=== PATIENT | male | born 1990 | race Caucasian/White ===

== ENCOUNTER 2018-02-03 17:21 | Inpatient (IN) | payer BC ==
[~2018-02-03] VITALS: Ht 172.7 cm; Wt 90.3 kg
[2018-02-03 18:41] LABS: HEMATOCRIT 41.2 % (38.0-50.0); HEMOGLOBIN 14.7 G/DL (12.5-16.6); MCH 28.2 PG (29.0-34.0); MCHC 35.7 G/DL (30.0-36.0); MCV 79.1 FL (86-99); PLATELET COUNT 406 K/uL (156-360); RBC DIS.WIDTH-SD 37.1 % (39-53); RED BLOOD COUNT 5.21 M/uL (4.00-5.50); WHITE BLOOD COUNT 8.3 K/uL (4.1-10.2)
[2018-02-03 18:53] LABS: CHLORIDE 108 mEq/L (99-109); POTASSIUM 4.3 mEq/L (3.7-5.4); SODIUM 139 mEq/L (136-147)
[2018-02-03 18:55] LABS: GLUCOSE 93 mg/dL (70-99)
[2018-02-03 18:59] LABS: CREATININE 1.7 mg/dL (0.6-1.3); GFR ESTIMATE (CALCULATED) 51 mL/min/ (58.99-99999); UREA NITROGEN (BUN) 14 mg/dL (9-23)
[2018-02-03 19:23] LABS: CREATINE KINASE 5050 IU/L (1-294)
[2018-02-03 19:45] LABS: APPEARANCE CLEAR ((CLEAR)); BILIRUBIN NEGATIVE; BLOOD NEGATIVE; COLOR YELLOW ((YELLOW)); GLUCOSE (STRIP) NEGATIVE; KETONES NEGATIVE; LEUKOCYTES NEGATIVE; NITRITE NEGATIVE; PROTEIN (STRIP) NEGATIVE; SPECIFIC GRAVITY 1.017 (1.000-1.030); UROBILINOGEN 0.2 MG/DL (0.2-1.0)
[2018-02-03] MEDS ORDERED: TOPAMAX100 MG PO (19:53)
[2018-02-03] MEDS ORDERED: IMITREX25 MG PO (19:53)
[2018-02-03] MEDS ORDERED: EXCEDRIN MIGRA1 EAC3 PO (19:54)
[2018-02-03] MEDS ORDERED: ALLEGRA60 MG PO (19:54)
[2018-02-03 21:08] LABS: THYROTROPIN (TSH) 1.1 MIU/L (0.4-5.5)
[2018-02-03 22:20] VITALS: BP 148/94
[2018-02-04 00:10] VITALS: BP 141/91
[2018-02-04 05:39] LABS: HEMATOCRIT 39.4 % (38.0-50.0); HEMOGLOBIN 13.5 G/DL (12.5-16.6); MCH 27.3 PG (29.0-34.0); MCHC 34.3 G/DL (30.0-36.0); MCV 79.8 FL (86-99); PLATELET COUNT 333 K/uL (156-360); RBC DIS.WIDTH-CV 12.9 % (11.8-14.6); RBC DIS.WIDTH-SD 36.9 % (39-53); RED BLOOD COUNT 4.94 M/uL (4.00-5.50); WHITE BLOOD COUNT 6.7 K/uL (4.1-10.2)
[2018-02-04 06:19] LABS: ALBUMIN 3.6 G/DL (3.2-4.8); ALKALINE PHOSPHATASE 60 IU/L (3-129); ALT (GPT) 54 IU/L (3-49); AST (GOT) 72 IU/L (2-34); CHLORIDE 110 MEQ/L (99-109); CREATININE 1.2 MG/DL (0.6-1.3); GFR ESTIMATE (CALCULATED) > 59 mL/min/ (58.99-99999); GLUCOSE 90 mg/dL (70-99); POTASSIUM 4.3 MEQ/L (3.7-5.4); SODIUM 141 MEQ/L (136-147); TOTAL BILIRUBIN 0.4 MG/DL (0.0-1.0); TOTAL PROTEIN 5.9 G/DL (6.4-8.3); UREA NITROGEN (BUN) 13 mg/dL (9-23)
[2018-02-04 06:36] LABS: CREATINE KINASE 6572 IU/L (1-294)
[2018-02-04 07:21] VITALS: BP 137/81
[2018-02-04 14:54] LABS: C-REACTIVE PROTEIN 2.8 MG/L (0-10)
[2018-02-04 15:30] VITALS: BP 128/76
[2018-02-05 00:29] VITALS: BP 135/69
[2018-02-05 06:43] LABS: HEMATOCRIT 40.5 % (38.0-50.0); HEMOGLOBIN 13.7 G/DL (12.5-16.6); MCH 27.1 PG (29.0-34.0); MCHC 33.8 G/DL (30.0-36.0); MCV 80.2 FL (86-99); PLATELET COUNT 345 K/uL (156-360); RBC DIS.WIDTH-SD 36.7 % (39-53); RED BLOOD COUNT 5.05 M/uL (4.00-5.50); WHITE BLOOD COUNT 6.7 K/uL (4.1-10.2)
[2018-02-05 07:01] LABS: ALBUMIN 4.3 G/DL (3.2-4.8); ALKALINE PHOSPHATASE 77 IU/L (3-129); ALT (GPT) 62 IU/L (3-49); AST (GOT) 83 IU/L (2-34); CHLORIDE 110 MEQ/L (99-109); CREATININE 1.1 MG/DL (0.6-1.3); GFR ESTIMATE (CALCULATED) > 59 mL/min/ (58.99-99999); GLUCOSE 88 mg/dL (70-99); POTASSIUM 4.3 MEQ/L (3.7-5.4); SODIUM 141 MEQ/L (136-147); TOTAL BILIRUBIN 0.4 MG/DL (0.0-1.0); TOTAL PROTEIN 6.5 G/DL (6.4-8.3); UREA NITROGEN (BUN) 9 mg/dL (9-23)
[2018-02-05 07:29] LABS: CREATINE KINASE 7146 IU/L (1-294)
[2018-02-05 16:12] VITALS: BP 140/94
[2018-02-06 00:01] VITALS: BP 126/78
[2018-02-06 04:08] VITALS: BP 144/86
[2018-02-06 05:26] LABS: HEMATOCRIT 41.3 % (38.0-50.0); HEMOGLOBIN 14.5 G/DL (12.5-16.6); MCH 27.9 PG (29.0-34.0); MCHC 35.1 G/DL (30.0-36.0); MCV 79.6 FL (86-99); PLATELET COUNT 348 K/uL (156-360); RBC DIS.WIDTH-CV 12.9 % (11.8-14.6); RBC DIS.WIDTH-SD 36.4 % (39-53); RED BLOOD COUNT 5.19 M/uL (4.00-5.50)
[2018-02-06 05:30] LABS: ALBUMIN 4.3 g/dL (3.2-4.8); CHLORIDE 112 mEq/L (99-109); POTASSIUM 4.3 mEq/L (3.7-5.4); SODIUM 141 mEq/L (136-147)
[2018-02-06 05:32] LABS: GLUCOSE 103 mg/dL (70-99)
[2018-02-06 05:33] LABS: TOTAL PROTEIN 6.9 g/dL (6.4-8.3)
[2018-02-06 05:34] LABS: TOTAL BILIRUBIN 0.5 mg/dL (0.0-1.0)
[2018-02-06 05:36] LABS: ALKALINE PHOSPHATASE 81 IU/L (3-129); CREATININE 1.1 mg/dL (0.6-1.3); GFR ESTIMATE (CALCULATED) > 59 mL/min/ (58.99-99999)
[2018-02-06 05:37] LABS: UREA NITROGEN (BUN) 8 mg/dL (9-23)
[2018-02-06 05:38] LABS: AST (GOT) 80 IU/L (2-34)
[2018-02-06 05:39] LABS: ALT (GPT) 81 IU/L (3-49)
[2018-02-06 05:45] LABS: TROP-I INTERPRETATION NEGATIVE; TROPONIN-I < 0.01 ng/mL (0.0-0.30)
[2018-02-06 05:54] LABS: CREATINE KINASE 4534 IU/L (1-294)
[2018-02-06 07:25] VITALS: BP 136/68
[2018-02-06 15:06] VITALS: BP 143/99
[2018-02-06 23:56] VITALS: BP 119/77
[2018-02-07 06:27] LABS: ALBUMIN 4.2 G/DL (3.2-4.8); ALKALINE PHOSPHATASE 70 IU/L (3-129); ALT (GPT) 63 IU/L (3-49); AST (GOT) 47 IU/L (2-34); CHLORIDE 107 MEQ/L (99-109); CREATININE 1.1 MG/DL (0.6-1.3); GFR ESTIMATE (CALCULATED) > 59 mL/min/ (58.99-99999); GLUCOSE 90 mg/dL (70-99); HDL CHOLESTEROL 28 MG/DL (Desirable>=40); LDL CHOLESTEROL 131 mg/dL (Desirable<100); NON-HDL CHOLESTEROL 170 mg/dL (Desirable<160); POTASSIUM 4.2 MEQ/L (3.7-5.4); SODIUM 139 MEQ/L (136-147); TOTAL CHOLESTEROL 198 mg/dL (Desirable<200); TOTAL PROTEIN 6.8 G/DL (6.4-8.3); TRIGLYCERIDES 196 MG/DL (Normal: <150); UREA NITROGEN (BUN) 9 mg/dL (9-23)
[2018-02-07 06:28] LABS: TOTAL BILIRUBIN 0.5 MG/DL (0.0-1.0)
[2018-02-07 06:39] LABS: CREATINE KINASE 1319 IU/L (1-294)
[2018-02-07 07:31] VITALS: BP 146/91
[2018-02-07 15:29] VITALS: BP 137/88
== END 2018-02-07 16:28 | disposition home or self-care (01) | DRG 558 ==
LOC: EME 17:21 → EDOF 21:21 → 5SOUTH 21:21 → ENRESERV 21:24 → 5SOUTH 22:13
PROVIDERS: Hospitalist; Internal Medicine; Physician Assistant
DX: M62.82 Rhabdomyolysis (principal); N17.9 Acute kidney failure, unspecified; E86.0 Dehydration; G89.4 Chronic pain syndrome; K08.89 Other specified disorders of teeth and supporting structures; G43.909 Migraine, unspecified, not intractable, without status migrainosus; F12.90 Cannabis use, unspecified, uncomplicated; R20.2 Paresthesia of skin; R74.0 Nonspecific elevation of levels of transaminase and lactic acid dehydrogenase [LDH]
CPT/HCPCS: 70553; 72156; 80048; 80053; 80061; 81003; 82550; 82550 91; 82607; 84443; 84484; 85027; 85651; 86038; 86140; 93005; 99281; 99285; J2405; J3030; J7030